=== PATIENT | male | born 1990 | race Caucasian/White ===

== ENCOUNTER 2017-04-30 11:08 | Emergency (ER) | payer OTHER ==
[~2017-04-30] VITALS: Ht 175.3 cm; Wt 67.5 kg
[2017-04-30 11:11] VITALS: BP 136/74; TEMP 98.8
[2017-04-30] MEDS ORDERED: PEN-VEE K500 MG PO (12:26)
[2017-04-30] MEDS ORDERED: NORCO 325 MG-51 TAB PO (12:26)
[2017-04-30 12:44] VITALS: PULSE 94
== END 2017-04-30 12:45 | disposition home or self-care (01) ==
LOC: COL.ER 11:08
DX: K08.89 Other specified disorders of teeth and supporting structures (principal); R59.1 Generalized enlarged lymph nodes; F17.210 Nicotine dependence, cigarettes, uncomplicated

== ENCOUNTER → 2017-09-05 | Outpatient (REF) ==
[~2017-09-05] MED LIST: NORCO 325 MG-51 TAB PO; PEN-VEE K500 MG PO
== END ==
LOC: ZLAB.WCH 08:37
DX: Z01.89 Encounter for other specified special examinations (principal)

== ENCOUNTER 2018-03-26 05:09 | Emergency (ER) | payer SELFPAY ==
[~2018-03-26] VITALS: Ht 177.8 cm; Wt 70.5 kg
[2018-03-26 05:15] VITALS: TEMP 96.5
[2018-03-26 05:40] LABS: HEMOGLOBIN 11.9 g/dl (13.5-18.0); MEAN CELL VOLUME 86 fl (80.0-100.0); MEAN CORPUSCULAR HEMOGLOBIN 28 pg (27.0-31.0); MEAN CORPUSCULAR HGB CONC 33 g/dl (33.0-37.0); MEAN PLATELET VOLUME 11.8 fl (7.4-10.4); PLATELET COUNT 182 K/mm3 (130-400); RED BLOOD COUNT 4.22 M/mm3 (4.20-5.60); REDCELL DISTRIBUTION WIDTH-CV 13.6 % (11.5-14.5)
[2018-03-26 05:43] LABS: HEMATOCRIT 36.1 % (42.0-52.0)
[2018-03-26 05:46] LABS: INR 1.2 (0.8-3.0); PROTHROMBIN TIME 13.4 SECONDS (9.7-12.8)
[2018-03-26 05:50] LABS: ALBUMIN 3.7 gm/dL (3.5-5.0); BILIRUBIN,TOTAL 0.3 mg/dL (0.0-1.0); CALCIUM 7.7 mg/dL (8.4-10.2); CREATININE, serum 1.48 mg/dL (0.66-1.25); POTASSIUM 4.2 mmol/L (3.4-5.0); TOTAL PROTEIN 6.4 gm/dL (6.4-8.2)
[2018-03-26 06:10] LABS: BAND 7 % (0-10); LYMPHOCYTE 5 % (20.0-51.0); NEUTROPHILS 84 % (42.0-75.2); PLATELET ESTIMATE NORMAL (NORMAL)
[2018-03-26 07:35] VITALS: BP 101/55; PULSE 99
== END 2018-03-26 07:38 | disposition short-term general hospital (02) ==
LOC: COL.ER 05:09
PROVIDERS: Emergency Medicine
DX: S06.0X9A Concussion with loss of consciousness of unspecified duration, initial encounter (principal); S01.81XA Laceration without foreign body of other part of head, initial encounter; S36.113A Laceration of liver, unspecified degree, initial encounter; S37.031A Laceration of right kidney, unspecified degree, initial encounter; S27.321A Contusion of lung, unilateral, initial encounter; S19.9XXA Unspecified injury of neck, initial encounter; R40.2412 Glasgow coma scale score 13-15, at arrival to emergency department; F10.99 Alcohol use, unspecified with unspecified alcohol-induced disorder; F17.210 Nicotine dependence, cigarettes, uncomplicated; Y90.6 Blood alcohol level of 120-199 mg/100 ml; Z23 Encounter for immunization; V49.40XA Driver injured in collision with unspecified motor vehicles in traffic accident, initial encounter; Y93.I9 Activity, other involving external motion; Y92.410 Unspecified street and highway as the place of occurrence of the external cause
CPT/HCPCS: J3010; J7030; P9016; Q9967

== ENCOUNTER 2018-07-01 14:28 | Emergency (ER) | payer MEDICAID ==
[~2018-07-01] VITALS: Ht 177.8 cm; Wt 72.7 kg
[2018-07-01] MEDS ORDERED: AMOXICILLIN 8751 TAB PO (16:03)
[2018-07-01 18:08] VITALS: BP 117/77; PULSE 113; TEMP 99.4
== END 2018-07-01 18:11 | disposition home or self-care (01) ==
LOC: COL.ER 14:28
DX: K04.7 Periapical abscess without sinus (principal); F17.210 Nicotine dependence, cigarettes, uncomplicated
CPT/HCPCS: J0295; J1885; J7030